=== PATIENT | female | born 1985 | race Caucasian/White ===

== ENCOUNTER 2016-05-22 08:28 | Inpatient (IN) | payer MEDICAID, OTHER ==
[~2016-05-22] VITALS: Ht 157.5 cm; Wt 87.5 kg
[2016-05-22 08:48] VITALS: Ht 157.5 cm; Wt 87.5 kg
[2016-05-22 08:49] VITALS: BP 95/52; PULSE 90
[2016-05-22] MEDS ORDERED: PREN-99 PO (08:52)
[2016-05-22] MEDS ORDERED: FERR325C PO (08:53)
--- NOTE | 2016-05-22 09:16 | RADRPT ---
PROCEDURE: Limited OB ultrasound CLINICAL INDICATION: presentation TECHNIQUE: Sonographic evaluation to assess the presentation was performed. Transabdominal imaging of the gravid uterus was performed. COMPARISON: No prior exam is available for comparison. FINDINGS: There is a single live intrauterine with a heart rate of 143 bpm. position is breech. The placenta is anterior. IMPRESSION: Breech presentation. RPTAT: HH .Alyssa Peck MD, MD Date Time Electronically viewed and signed by .Alyssa Peck MD, on 05/22/2016 09:16 .G/
--- NOTE | 2016-05-22 09:57 | TRIAGE ---
OB Triage Datetime Report Generated by CPN: 05/22/2016 09:57 Datetime: 05/22/2016 08:43 Stage of : OB Triage Assessment Type: Triage Maternal Assessment Level of Consciousness: Fully Conscious DTR's/Clonus: DTRs 2+; No Clonus Headache: Denies Blurred Vision: No Respiratory Effort: Unlabored; Regular Rhythm; Equal Expansion Breath Sounds, Left: Clear and Equal Breath Sounds, Right: Clear and Equal Nausea/Vomiting: Denies RUQ Epigastric Pain: Denies Lower Extremities Edema: None Degree: None Upper Extremities Edema: None Degree: None Facial Edema: None Temperature Route: Oral Fall Risk Assessment History of Falling: (0) No Secondary Diagnosis: (0) No Ambulatory Aid: (0) Bedrest/Nurse Assist IV Therapy: (0) No Gait: (0) Normal/Bedrest/Immobile Mental Status: (0) Oriented to Own Ability Fall Score: 0 Fall Risk Score Definition: No Risk: No action required Labor Evaluation Frequency: X1 Monitor Mode: External Duration (sec)2399: 50 Quality: Mild Resting Tone Wright: Relaxed Heart Rate FHR Baseline Rate: 135 Monitor Mode: External US FHR Baseline Changes: No Baseline Change Variability: Moderate 6-25 bpm Decelerations: None Category: Category I Pain Assessment Pain Scale: 0 Pain Presence: None/Denies Pain Type: N/A Datetime: 05/22/2016 08:37 Time of Arrival: 05/22/2016 08:28 EGA: 40.2 Arrived By: Ambulatory Arrived From: Home Chief Complaint: pt is here to do US to r/o breech presentation Movement: Present Contractions: Denies/Absent Rupture of Membranes: Denies Vaginal Bleeding: None Vaginal Discharge: Denies Recent Sexual Intercouse: Denies Abdominal Trauma: Not Applicable Patient Complaints: None Time Provider Notified: 05/22/2016 09:13 Provider Notified: DR WEN Initial Plan: US FOR PRESENTATION
[2016-05-22] MEDS ORDERED: OXYTOCIN 30 UNITS/LR 500 ML IV PRN ×2 (10:00→21:30)
[2016-05-22] MEDS ORDERED: CEFAZOLIN 2 GM/50 ML (PMX) 50 ML IV SCH (10:00)
[2016-05-22] MEDS ORDERED: MISOPROSTOL 200 MCG TAB PR PRN ×2 (10:00→21:30)
[2016-05-22] MEDS ORDERED: CARBOPROST 250 MCG INJ IM PRN ×2 (10:00→21:30)
[2016-05-22] MEDS ORDERED: OXYTOCIN 30 UNITS/LR 500 ML IV SCH (10:00)
[2016-05-22] MEDS ORDERED: METHYLERGONOVINE 0.2 MG INJ IM PRN ×2 (10:00→21:30)
[2016-05-22] MEDS: LACTATED RINGER'S 1,000 ML IV SCH ×2 (11:20→15:00)
[2016-05-22 11:42] LABS: ADD SCAN DIFF NO
[2016-05-22 11:45] LABS: BASOPHILS % 0.4 % (0.0-2.0); EOSINOPHILS # 0.1 10^3/ul (0.0-0.5); EOSINOPHILS % 1.3 % (0.0-7.0); HEMATOCRIT 32.4 % (37.0-47.0); HEMOGLOBIN 10.5 g/dl (12.0-16.0); LYMPHOCYTES # 1.7 10^3/ul (0.8-2.9); LYMPHOCYTES % 25.3 % (15.0-51.0); MEAN CORPUSCULAR HEMOGLOBIN 26.6 pg (29.0-33.0); MEAN CORPUSCULAR HGB CONC 32.4 g/dl (32.0-37.0); MEAN CORPUSCULAR VOLUME 82.2 fl (82.0-101.0); MEAN PLATELET VOLUME 11.4 fl (7.4-10.4); MONOCYTE # 0.5 10^3/ul (0.3-0.9); MONOCYTES % 6.6 % (0.0-11.0); NEUTROPHIL # 4.5 10^3/ul (1.6-7.5); PLATELET COUNT 169 10^3/UL (140-415); RED BLOOD COUNT 3.94 10^6/ul (4.20-5.40); RED CELL DISTRIBUTION WIDTH 14.9 % (11.5-14.5); WHITE BLOOD COUNT 6.8 10^3/ul (4.8-10.8)
[2016-05-22 12:06] LABS: INR 0.98
[2016-05-22 12:07] LABS: PARTIAL THROMBOPLASTIN TIME 26.8 Sec (25.0-35.0)
[2016-05-22] MEDS ORDERED: LACTATED RINGER'S 1,000 ML IV ONE (13:27)
[2016-05-22] MEDS ORDERED: METOCLOPRAMIDE 10 MG INJ IV ONE (13:30)
[2016-05-22] MEDS ORDERED: CITRIC ACID/NA CITRATE 30 ML CUP PO ONE (13:30)
[2016-05-22] MEDS ORDERED: FAMOTIDINE 20 MG INJ IV ONE (13:30)
[2016-05-22] MEDS ORDERED: FENTAnyl 50 MCG/ML VIAL ONE (16:01)
[2016-05-22] MEDS ORDERED: morphine SULFATE/PF (10 MG/10 ML) INJ ONE (16:01)
[2016-05-22 16:06] LABS: BARBITURATES Negative (NEGATIVE); BENZODIAZEPINES Negative (NEGATIVE); CANNABINOIDS Negative (NEGATIVE); COCAINE Negative (NEGATIVE)
[2016-05-22 16:07] LABS: OPIATES Negative (NEGATIVE)
[2016-05-22] MEDS ORDERED: PHENYLephrine (100 MCG/ML) 5ML SYG ONE (16:16)
[2016-05-22] MEDS ORDERED: EPHEDrine SULFATE 50 MG/5 ML SYG ONE (16:16)
[2016-05-22] MEDS ORDERED: ONDANSETRON 4 MG INJ ONE (16:18)
[2016-05-22] MEDS ORDERED: MEPERIDINE 25 MG INJ IV PRN (16:30)
[2016-05-22] MEDS ORDERED: ONDANSETRON 4 MG INJ IV PRN ×2 (16:30→18:30)
[2016-05-22] MEDS ORDERED: DIPHENHYDRAMINE 50 MG INJ IV PRN ×2 (16:30→18:30)
[2016-05-22] MEDS ORDERED: PROCHLORPERAZINE 10 MG INJ IV PRN ×2 (16:30→18:30)
[2016-05-22] MEDS ORDERED: HYDROmorphONE (0.2 MG/ML) 10ML SYG IV PRN (16:30)
[2016-05-22] MEDS ORDERED: KETOROLAC 30 MG INJ IV PRN (16:30)
[2016-05-22] MEDS ORDERED: FENTAnyl 50 MCG/ML VIAL IV PRN (16:30)
--- NOTE | 2016-05-22 16:40 | HP ---
DATE OF ADMISSION: 05/22/2016 HISTORY OF PRESENT ILLNESS: This is a 30-year-old female, 6, para 5, with an EDC o f 05/20/2016, admitted to [facility] for a primary due to breech present ation. This patient has been under the care of the [facility] and her course was not complicated with gestational diabetes, -induced hypertension, or any other serious medi tony or surgical conditions. GYNECOLOGIC HISTORY: Menarche at age 13, regular periods, 28 days, lasting 4 or 5 days. History of a total of 5 prior pregnancies, with normal vaginal deliveries. ALLERGIES: DENIES ALLERGY TO ANY KNOWN MEDICATION. SOCIAL HABITS: Denies smoking or drinking. MEDICATIONS: 1. vitamins. 2. Ferrous sulfate 325 mg, 1 tablet daily. REVIEW OF SYSTEMS: Within normal. PHYSICAL EXAMINATION: VITAL SIGNS: Height 5 feet 2 inches, 87.5 kilograms. Temperature 98.1, respirations 18, pulse 90, blood pressure 95/52. HEAD, EARS, NOSE AND THROAT: Negative. NECK: Supple. No thyromegaly. LUNGS: Clear to P and A. HEART: Normal sinus rhythm. No murmur. BREASTS: Status compatible with state of the . No abnormal palpable mass. No nipple retr action or discharge. No axillary adenopathy. No supraclavicular adenopathy. ABDOMEN: Measures approximately 37 cm from the symphysis pubis and presenting part with Antoine man euver, breech, and the presenting part sitting at the upper brim of the right pelvis. PELVIC EXAMINATION: No presenting part in the pelvis. EXTREMITIES: No edema, no varicosities. IMPRESSION: Intrauterine at term, breech presentation. The patient is undergoing a primar y . She has been counseled regarding the complications of the surgery, including bowel or bladder injury, infection, hemorrhage and hematoma, and she is willing to go ahead with this procedu re. Dictated By: SHIVANI BLANCO/LEXI Conf#: [id number] DID#: [id number]
[2016-05-22] MEDS ORDERED: OXYTOCIN 30 UNITS/LR 500 ML IV ONE (16:55)
[2016-05-22] MEDS ORDERED: NALOXONE (0.4 MG/ML) INJ IV PRN (18:30)
[2016-05-22] MEDS ORDERED: HYDROmorphONE 1 MG/ML SYG IV PRN (18:30)
[2016-05-22] MEDS ORDERED: ZOLPIDEM 5 MG TAB PO PRN (18:30)
--- NOTE | 2016-05-22 18:54 | OPR ---
DATE OF OPERATION: 05/22/2016 PREOPERATIVE DIAGNOSIS: Intrauterine at term, 86-oyeaj-[id number]-2 days, breech presentation. POSTOPERATIVE DIAGNOSES: Transverse lie presentation. OPERATION PERFORMED: Primary transverse low cervical section. SURGEON: Shivani Patel MD FIELD SERVICE SUPERVISOR: Job Leung MD ANESTHESIA: Spinal. ANESTHESIOLOGIST: Ximena Real MD FINDINGS: Live baby 8 and 9. DETAILS OF THE PROCEDURE: Under satisfactory spinal anesthesia, the patient prepped and draped and placed in supine position, tilted to the left. Pfannenstiel incision was made, incision carried through the subcutaneous tissue. Bleeders brought under control with electrocautery. Fascia incised to the length of the incision. Rectus muscle divided in midline. Peritoneum exposed, entered through a transverse incision. Exploration of abdomen revealed a gravid uterus at term, normal-appearing tubes and ovaries. Bladder flap was developed. Transverse incision was made in the lower segment of the uterus. Amniotic sac ruptured. Light meconium-stained amniotic fluid noted. Live baby was delivered from transverse lie with the head in the right upper quadrant and the shoulder toward the middle of the pelvis, which head guided and directed to the center and baby was delivered as a vertex. Nasal oropharyngeal suction was performed and baby handed to the team for immediate attention. Patient received 20 units of Pitocin. Placenta delivered manually intact. Uterine cavity cleaned with wet sponge and drainage established. Uterus closed in 2 layers using Monocryl #1 in continuous fashion. Peritoneal cavity irrigated with warm saline. The sponge, needle and instrument reported to be correct. Abdominal peritoneum closed with 2-0 chromic catgut continuously. Rectus muscle approximated with two interrupted 2- 0 chromic catgut. Fascia closed with #1 PDS in a continuous fashion. Subcutaneous tissue approximated with 2-0 chromic catgut. The skin closed with jose roberto. Estimated blood loss 700 to 800 mL. Urine bag contained 200 mL of clear urine. Patient tolerated procedure well. Was transferred to recovery room in a good condition. Dictated By: SHIVANI BLANCO/NTS Conf#: [id number] DID#: [id number] MTDD
--- NOTE | 2016-05-22 19:35 | HP ---
DATE OF ADMISSION: 05/22/2016 HISTORY OF PRESENT ILLNESS: This is a 30-year-old female, 6, para 5, EDC of 05/20, admitted to [facility] at 40 weeks and 2 days diagnosed with breech presentation. On admission, the patient underwent an ultrasound evaluation, and the presenting part was breech. The patient is being prepared to undergo a primary for malpresentation. This patient has been under the care of the [facility], and her course was not complicated with gestational diabetes, -induced hypertension or any other serious medical or surgical condition. GYNECOLOGIC HISTORY: Menarche at age 13, regular periods every 28 to 30 days, lasting 4 or 5 days. History of total of 6 pregnancies including the present. PAST MEDICAL HISTORY: No other surgery or hospitalization reported in the patient's . ALLERGIES: THE PATIENT DENIES ALLERGY TO ANY KNOWN MEDICATION. SOCIAL HISTORY STATUS: Denies smoking or drinking. FAMILY HISTORY: Unremarkable. REVIEW OF SYSTEMS: Within normal. PHYSICAL EXAMINATION: VITAL SIGNS: Height 5 feet 2 inches. Weight 193 pounds. Temperature 98.1, pulse of 73, respirations 18 and blood pressure 97/59. HEAD, EARS, NOSE AND THROAT: Negative. NECK: Supple. No thyromegaly. LUNGS: Clear to P and A. HEART: Normal sinus rhythm. No murmur. BREASTS: Status compatible with state of the . No abnormal palpable mass. No nipple retraction or discharge. No axillary adenopathy. No supraclavicular adenopathy. ABDOMEN: Measures approximately 39 cm from symphysis pubis. heart rate category 1 and presentation of the baby by the Antoine maneuver breech presentation. PELVIC: Normal marital introitus, normal vagina. Cervix fingertip. Presenting part not felt into the pelvis, and as it was mentioned, with the Antoine maneuver, possible footling breech or transverse lie. EXTREMITIES: No edema, no varicosity. IMPRESSION: Intrauterine unstable presentation, breech versus transverse lie. This was discussed with the patient, and the nature of the surgery was explained to the patient including complications that may arise from this procedure. All questions were answered, and the patient is willing to go ahead with the primary . Dictated By: SHIVANI WEN MD HF/LEXI Conf#: [id number] [facility]#: [id number] MTDD
[2016-05-22 20:45] VITALS: BP 110/58; PULSE 60; RESP 18
[2016-05-22] MEDS ORDERED: LANOLIN 7 GM TUBE TOP PRN (21:30)
[2016-05-22] MEDS ORDERED: CEFAZOLIN 1 GM/50 ML (PMX) 50 ML IVPB SCH (21:30)
[2016-05-22 21:45] VITALS: BP 110/55; PULSE 69; RESP 19
[2016-05-22] MEDS: HYDROmorphONE 1 MG/ML SYG IV PRN (21:57)
[2016-05-22] MEDS: OXYTOCIN 30 UNITS/LR 500 ML IV SCH (23:03)
[2016-05-23] VITALS: BP 101/57; PULSE 81; RESP 19
[2016-05-23] MEDS: OXYTOCIN 30 UNITS/LR 500 ML IV SCH ×6 (02:48→21:18)
[2016-05-23 04:10] VITALS: BP 109/53; PULSE 66; RESP 19
[2016-05-23] MEDS: LACTATED RINGER'S 1,000 ML IV SCH ×3 (04:28→17:05)
[2016-05-23] MEDS: KETOROLAC 30 MG INJ IV PRN ×2 (05:27→12:02)
[2016-05-23 07:42] LABS: ADD SCAN DIFF NO
[2016-05-23 07:45] LABS: BASOPHILS % 0.3 % (0.0-2.0); EOSINOPHILS # 0.1 10^3/ul (0.0-0.5); EOSINOPHILS % 0.5 % (0.0-7.0); HEMATOCRIT 28.2 % (37.0-47.0); LYMPHOCYTES # 1.6 10^3/ul (0.8-2.9); LYMPHOCYTES % 17.4 % (15.0-51.0); MEAN CORPUSCULAR HEMOGLOBIN 26.4 pg (29.0-33.0); MEAN CORPUSCULAR HGB CONC 31.9 g/dl (32.0-37.0); MEAN CORPUSCULAR VOLUME 82.7 fl (82.0-101.0); MONOCYTE # 0.6 10^3/ul (0.3-0.9); MONOCYTES % 6.5 % (0.0-11.0); NEUTROPHILS % 74.9 % (39.0-77.0); PLATELET COUNT 146 10^3/UL (140-415); RED BLOOD COUNT 3.41 10^6/ul (4.20-5.40); RED CELL DISTRIBUTION WIDTH 15.1 % (11.5-14.5); WHITE BLOOD COUNT 9.4 10^3/ul (4.8-10.8)
[2016-05-23 09:00] VITALS: BP 84/48; PULSE 78; RESP 16
[2016-05-23] MEDS: SENNA/DOCUSATE NA (8.6MG/50MG) TAB PO SCH ×2 (09:27→22:02)
--- NOTE | 2016-05-23 09:52 | PN ---
Date/Time of Note Date/Time of Note DATE: 05/23/16 TIME: 09:51 OB Subjective Subjective Subjective Post day 1 Vital signs stable, afebrile, abdomen soft bowel sounds present abdomen mildly distended extremities normal. Laboratory Tests Test 05/22/16 11:15 05/22/16 15:10 05/23/16 06:22 Activated Partial Thromboplast Time 26.8Sec Basophils # 0.010^3/ul 0.010^3/ul Basophils % 0.4% 0.3% Eosinophils # 0.110^3/ul 0.110^3/ul Eosinophils % 1.3% 0.5% Hematocrit 32.4% 28.2% Hemoglobin 10.5g/dl 9.0g/dl INR International Normalized Ratio 0.98 Lymphocytes # 1.710^3/ul 1.610^3/ul Lymphocytes % 25.3% 17.4% Mean Corpuscular Hemoglobin 26.6pg 26.4pg Mean Corpuscular Hemoglobin Concent 32.4g/dl 31.9g/dl Mean Corpuscular Volume 82.2fl 82.7fl Mean Platelet Volume 11.4fl 12.0fl Monocytes # 0.510^3/ul 0.610^3/ul Monocytes % 6.6% 6.5% Neutrophils # 4.510^3/ul 7.010^3/ul Neutrophils % 66.0% 74.9% Nucleated Red Blood Cells # 0.010^3/ul 0.010^3/ul Nucleated Red Blood Cells % 0.0/100WBC 0.0/100WBC Platelet Count 84579^3/UL 80158^3/UL Prothrombin Time 13.0Sec Prothrombin Time Ratio 1.0 Rapid Plasma Reagin NONREACTIVE Red Blood Count 3.9410^6/ul 3.4110^6/ul Red Cell Distribution Width 14.9% 15.1% White Blood Count 6.810^3/ul 9.410^3/ul Urine Amphetamines Screen Negative Urine Barbiturates Negative Urine Benzodiazepines Screen Negative Urine Cannabinoids Negative Urine Cocaine Screen Negative Urine Opiates Screen Negative Current Medications Medications (Trade) Dose Ordered Sig/Kirstie Route PRN Reason Start Time Stop Time Status Last Admin Dose Admin Lactated Ringer's 1,000 ml @ 125 mls/hr Q8H IV 05/22/16 09:39 05/23/16 04:28 Cefazolin Sodium/ Dextrose 50 ml @ 100 mls/hr ONCE IV 05/22/16 10:00 05/22/16 21:22 DC Oxytocin/Lactated Ringer's 500 ml @ 125 mls/hr ONCE IV 05/22/16 10:00 05/22/16 21:22 DC 05/22/16 19:01 Oxytocin/Lactated Ringer's 500 ml @ 0 mls/hr ONCE PRN IV For Hemorrhage Management 05/22/16 10:00 05/22/16 21:22 DC Methylergonovine Maleate (Methergine) 0.2 mg ONCE PRN IM VAGINAL BLEEDING 05/22/16 10:00 05/22/16 21:22 DC Carboprost Tromethamine (Hemabate) 250 mcg ONCE PRN IM VAGINAL BLEEDING 05/22/16 10:00 05/22/16 21:22 DC Misoprostol 1000 mcg 1,000 mcg ONCE PRN ME VAGINAL BLEEDING 05/22/16 10:00 05/22/16 21:22 DC Lactated Ringer's (Lr) 1,000 ml @ 1,000 mls/hr Q1H ONCE IV 05/22/16 13:27 05/22/16 14:26 DC Citric Acid/ Sodium Citrate (Bicitra) 30 ml pre-procedure ONCE PO 05/22/16 13:30 05/22/16 13:40 DC 05/22/16 15:32 Famotidine (Pepcid Iv) 20 mg pre-procedure ONCE IV 05/22/16 13:30 05/22/16 13:40 DC 05/22/16 15:33 Metoclopramide HCl (Reglan) 10 mg ONCE ONCE IV 05/22/16 13:30 05/22/16 13:40 DC 05/22/16 15:33 Morphine Sulfate (Duramorph) 10 mg STK-MED ONCE .ROUTE 05/22/16 16:01 05/22/16 16:02 DC Fentanyl (Sublimaze) 100 mcg STK-MED ONCE .ROUTE 05/22/16 16:01 05/22/16 16:02 DC Ephedrine Sulfate 50 mg STK-MED ONCE .ROUTE 05/22/16 16:16 05/22/16 16:17 DC Phenylephrine HCl (Winston-Synephrine Inj Syg) 500 mcg STK-MED ONCE .ROUTE 05/22/16 16:16 05/22/16 16:17 DC Ondansetron HCl (Zofran Inj) 4 mg STK-MED ONCE .ROUTE 05/22/16 16:18 05/22/16 16:19 DC Hydromorphone HCl (Dilaudid (Rec)) 0.4 mg PACU ORDER PRN IV PAIN 05/22/16 16:30 05/22/16 20:30 DC Fentanyl (Sublimaze) 25 mcg PACU ORDER PRN IV PAIN 05/22/16 16:30 05/22/16 20:30 DC 05/22/16 19:02 Ketorolac Tromethamine (Toradol) 30 mg PACU ORDER PRN IV PAIN 05/22/16 16:30 05/22/16 20:30 DC 05/22/16 18:11 Ondansetron HCl (Zofran Inj) 4 mg PACU ORDER PRN IV NAUSEA AND/OR VOMITING 05/22/16 16:30 05/22/16 20:30 DC Prochlorperazine (Compazine Inj) 5 mg PACU ORDER PRN IV NAUSEA AND/OR VOMITING 05/22/16 16:30 05/22/16 20:30 DC Meperidine HCl (Demerol) 25 mg PACU ORDER PRN IV POST-OP RIGORS 05/22/16 16:30 05/22/16 20:30 DC Diphenhydramine HCl 25 mg 25 mg PACU ORDER PRN IV PRURITUS 05/22/16 16:30 05/22/16 20:30 DC 05/22/16 18:12 Oxytocin/Lactated Ringer's 500 ml @ ud STK-MED ONCE IV 05/22/16 16:55 05/22/16 16:56 DC Naloxone HCl (Narcan) 0.1 mg Q2M PRN IV FOR RESP RATE 8 OR LESS 05/22/16 18:30 05/22/16 21:22 DC Ketorolac Tromethamine (Toradol) 30 mg Q6H PRN IV PAIN 05/22/16 18:30 05/23/16 18:29 05/23/16 05:27 Hydromorphone HCl (Dilaudid) 0.2 mg Q3H PRN IV PAIN LEVEL 1-5 05/22/16 18:30 05/23/16 18:29 Hydromorphone HCl (Dilaudid) 0.4 mg Q3H PRN IV PAIN LEVEL 6-10 05/22/16 18:30 05/23/16 18:29 05/22/16 21:57 Diphenhydramine HCl (Benadryl) 25 mg Q6H PRN IV ITCHING 05/22/16 18:30 05/23/16 18:29 Ondansetron HCl (Zofran Inj) 4 mg Q6H PRN IV NAUSEA AND/OR VOMITING 05/22/16 18:30 05/23/16 18:29 Prochlorperazine (Compazine Inj) 10 mg ONCE PRN IV NAUSEA AND/OR VOMITING 05/22/16 18:30 05/23/16 18:29 Zolpidem Tartrate (Ambien) 5 mg HS MAY REPEAT X 1 PRN PO INSOMNIA 05/22/16 18:30 05/23/16 18:29 Miscellaneous Information (* Miscellaneous Pharmacy Order) Duramorph: 0.2 mg Spi... GIVEN XX 05/22/16 18:30 05/22/16 21:22 DC Acetaminophen/ Codeine Phosphate (Tylenol No.3) 1 tab Q4H PRN PO PAIN LEVEL 4-6 05/23/16 18:30 Acetaminophen/ Codeine Phosphate (Tylenol No.3) 2 tab Q4H PRN PO PAIN LEVEL 7-10 05/23/16 18:30 Oxycodone/ Acetaminophen (Percocet (5/ 325)) 1 tab Q4H PRN PO PAIN LEVEL 4-6 05/23/16 18:30 Oxycodone/ Acetaminophen (Percocet (5/ 325)) 2 tab Q4H PRN PO PAIN LEVEL 7-10 05/23/16 18:30 Ibuprofen (Motrin) 600 mg Q6 PO 05/24/16 00:00 Simethicone (Mylicon) 160 mg Q8H PRN PO DISTENSION/GAS/BLOATING 05/22/16 21:30 Senna/Docusate Sodium (Senokot-S) 1 tab BID PO 05/23/16 09:00 05/23/16 09:27 Lanolin (Tyk-B-Dgwehw) 1 applic BEDSIDE MEDICATION PRN TOP BEDSIDE FOR TYRESE TO NIPPLES 05/22/16 21:30 05/23/16 05:27 Diphtheria/ Tetanus/Acell Pertussis 0.5 ml 0.5 ml ONCE ONCE IM* 05/25/16 09:00 05/25/16 09:01 Oxytocin/Lactated Ringer's 500 ml @ 0 mls/hr ONCE PRN IV For Hemorrhage Management 05/22/16 21:30 Methylergonovine Maleate (Methergine) 0.2 mg ONCE PRN IM VAGINAL BLEEDING 05/22/16 21:30 Carboprost Tromethamine (Hemabate) 250 mcg ONCE PRN IM VAGINAL BLEEDING 05/22/16 21:30 Misoprostol 1000 mcg 1,000 mcg ONCE PRN ME VAGINAL BLEEDING 05/22/16 21:30 Cefazolin Sodium 50 ml @ 100 mls/hr ONCE IVPB 05/22/16 21:30 05/22/16 21:59 DC 05/23/16 00:06 Oxytocin/Lactated Ringer's 500 ml @ 125 mls/hr Q4H IV 05/22/16 21:18 05/22/16 23:03 IV Flush (NS 10 ml) 10 ml Q8H AND PRN IV 05/22/16 21:30 Influenza Virus Vaccine (Fluzone) 0.5 ml ONCE ONCE IM* 05/24/16 09:00 05/24/16 09:01 ambulation recommended SHIVANI WEN MD May 23, 2016 09:52
[2016-05-23] MEDS: HYDROmorphONE 1 MG/ML SYG IV PRN (09:55)
[2016-05-23 11:45] VITALS: BP 84/51; PULSE 71; RESP 17
[2016-05-23 16:00] VITALS: BP 103/63; PULSE 77; RESP 17
[2016-05-23] MEDS: OXYCODONE/ACETAMINOPHEN (5/325) TAB PO PRN ×2 (17:50→22:03)
[2016-05-23] MEDS ORDERED: ACETAMINOPHEN/CODEINE #3 TAB PO PRN ×2 (18:30)
[2016-05-23] MEDS ORDERED: OXYCODONE/ACETAMINOPHEN (5/325) TAB PO PRN (18:30)
[2016-05-23 20:00] VITALS: BP 106/69; PULSE 72; RESP 18
[2016-05-23] MEDS: IBUPROFEN 600 MG TAB PO SCH (23:41)
[2016-05-24] MEDS: OXYTOCIN 30 UNITS/LR 500 ML IV SCH ×3 (01:18→17:18)
[2016-05-24] MEDS: LACTATED RINGER'S 1,000 ML IV SCH ×2 (01:39→17:28)
[2016-05-24 03:34] VITALS: BP 105/67; PULSE 73; RESP 19
[2016-05-24] MEDS: OXYCODONE/ACETAMINOPHEN (5/325) TAB PO PRN ×3 (03:34→20:37)
[2016-05-24] MEDS: IBUPROFEN 600 MG TAB PO SCH ×4 (05:30→23:34)
[2016-05-24 08:02] VITALS: BP 91/58; PULSE 59; RESP 20
[2016-05-24] MEDS: SENNA/DOCUSATE NA (8.6MG/50MG) TAB PO SCH ×2 (08:16→20:36)
[2016-05-24] MEDS ORDERED: INFLUENZA VIRUS VACCINE 0.5 ML (DISPENSING) IM* ONE (09:00)
--- NOTE | 2016-05-24 10:49 | QN ---
Documentation Comment POD #2 s/p primary c/s for breech. Doing well w/o c/o. + . T= 97.8 BP 91/58. Fundus firm. Dressing clean, dry and intact. Loachia minimal. Ext 1+ edema. P: Continue care. Plan d/c tomorrow. RADHA GRANGER MD May 24, 2016 10:49
[2016-05-24 16:39] VITALS: BP 94/58; PULSE 86; RESP 20
[2016-05-24 20:38] VITALS: BP 93/58; PULSE 71; RESP 20
[2016-05-25] MEDS: OXYCODONE/ACETAMINOPHEN (5/325) TAB PO PRN ×2 (01:49→06:15)
[2016-05-25 04:00] VITALS: BP 99/56; PULSE 60; RESP 18
[2016-05-25] MEDS: IBUPROFEN 600 MG TAB PO SCH ×2 (05:35→12:16)
[2016-05-25 08:20] VITALS: BP 91/51; PULSE 57; RESP 18
[2016-05-25] MEDS ORDERED: DIPHTH/TET/ACEL PERTUSS (ADULT) 0.5 ML VIAL IM* ONE (09:00)
[2016-05-25] MEDS ORDERED: NA PHOSPHATE/BIPHOS 133 ML ENEMA PR ONE (10:30)
[2016-05-25] MEDS: SENNA/DOCUSATE NA (8.6MG/50MG) TAB PO SCH (10:40)
--- NOTE | 2016-05-25 12:50 | PD.PPDC ---
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
--- NOTE | 2016-05-25 12:56 | DS ---
Date/Time of Note Date/Time of Note DATE: 05/25/16 TIME: 12:51 Obstetrical Discharge Record Final Diagnosis Final Diagnosis: Term delivered Section Section: Primary Condition on Discharge Physical Assessment Last Vitals: Post primary day 3 Patient underwent a primary due to on a stable presentation( transverse lie), her course was uneventful did not spiked temperature had no problem with urination and bowel movement on the third postoperative day incision inspected found free of inflammation and infection patient discharged home with a follow-up instruction to be seen at the clinic in 4 days to discontinue jose roberto receive A prescriptions of analgesics at the time of discharge Voiding: Yes Bowel Movement: Yes Breast: Soft, non-tender, Filling Fundus: Firm Abdomen and Incision: Healing well dry Calf Tenderness: No Patient Condition: Good SHIVANI WEN MD May 25, 2016 12:56
== END 2016-05-25 15:45 | disposition home or self-care (01) | DRG 766 ==
LOC: OBT 08:28 → L-D 08:30 → OBT 09:48 → L-D 09:53 → PP1 20:38
PROVIDERS: ADMIT Obstetrics & Gynecology; ATTEND Obstetrics & Gynecology
PROC: 10D00Z1 Extraction of Products of Conception, Low, Open Approach (ICD-10-PCS; principal; 2016-05-22 16:30)
DX: O32.2XX0 Maternal care for transverse and oblique lie, not applicable or unspecified (principal); Z37.0 Single live birth; Z3A.40 40 weeks gestation of pregnancy
CPT/HCPCS: 76815; 80307; 85025; 85610; 85730; 86592; 86850; 86900; 86901; 90686; 90715; 99464; G0463; J0690; J1170; J1200; J1885; J2210; J2274; J2370; J2405; J2590; J2765; J3010; J7120